=== PATIENT | male | born 1940 | race Caucasian/White ===

== ENCOUNTER 2018-04-27 07:41 | Outpatient (CLI) | payer MEDICARE ==
[2018-04-27 08:34] LABS: Estimated GFR-MDRD - POC Greater than 90
[2018-04-27] MEDS ORDERED: ISOVUE-370 76%-LOCM 1 ML ONE (13:56)
== END 2018-04-27 07:42 | disposition home or self-care (01) ==
LOC: BICCT 07:41
PROVIDERS: ATTEND Internal Medicine Hematology & Oncology
DX: C49.4 Malignant neoplasm of connective and soft tissue of abdomen (principal); R91.8 Other nonspecific abnormal finding of lung field; N28.1 Cyst of kidney, acquired; K76.89 Other specified diseases of liver; M89.9 Disorder of bone, unspecified
CPT/HCPCS: 71260; 74177; 82565

== ENCOUNTER 2019-05-02 07:20 | Outpatient (CLI) | payer MEDICARE ==
[2019-05-02 08:02] LABS: Estimated GFR-MDRD - POC Greater than 90
--- NOTE | 2019-05-02 08:37 | CT ---
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 COMPARISON: 04/27/2018 FINDINGS: CT THORAX: Lungs: Stable pulmonary nodules medial aspect right lower lobe are noted again measuring 6 mm and 4 m m respectively. No new pulmonary nodule or mass is seen. There is stable parenchymal scarring again seen in each lung base greater on the right. Pleura: No pleural effusion is seen. There is calcified pleural thickening at the anterior aspect rig ht upper and mid lung zones. This was also present on prior exam. Lymph nodes: No lymphadenopathy. Mediastinum: Vascular calcifications are seen in the thoracic aorta. Chest wall: No abnormalities. Osseous structures: Remote bilateral rib fractures are seen. Degenerative changes are noted in the sp ine. CT ABDOMEN AND PELVIS: Liver: A 1.3 cm fluid attenuation lesion seen in the posterior aspect left hepatic lobe likely relate d to a small cyst. This is overall stable in size compared to prior exam. Gallbladder: Increased density within lumen of the gallbladder likely related to gallbladder calculi and possibly sludge. This was also present on prior exam.\ Pancreas: Within normal limits. Spleen: Within normal limits. Adrenal glands: Within normal limits. Kidneys: Stable subcentimeter hypodense lesions are again seen in the left kidney statistically likel y representing cysts. The right kidney has a normal CT appearance. Urinary Bladder: The urinary bladder is unremarkable. Reproductive organs: Prostate gland is mildly enlarged measuring 5.5 cm in transverse dimensions with mild heterogeneity. Bowel: There is colonic diverticulosis. Loops of small bowel are normal in caliber. Adenopathy:No lymphadenopathy within the abdomen or pelvis. Peritoneum: No free fluid or fluid collection is seen. No free intraperitoneal gas is identified. Abdominal wall: Mild midline scarring is present. Osseous structures: Degenerative and postsurgical changes lumbar spine are noted. There is a stable s clerotic lesion within the posterior aspect of the left iliac bone at the level of the sacroiliac joint. This is unchanged compared to the prior exam, and this was also seen on a study in 2013. This also stable area of sclerosis seen within the upper sacrum centrally stable from prior studies.. IMPRESSION: 1. Stable CT scan of the chest, abdomen, and pelvis. 2. Stable right lower lobe pulmonary nodules. 3. Stable hepatic and renal cysts 4. Stable appearance of sclerotic osseous lesions within the pelvis. 5. Cholelithiasis. 6. Colonic diverticulosis.
[2019-05-02] MEDS ORDERED: ISOVUE-370 76%-LOCM 1 ML ONE (10:46)
== END 2019-05-02 07:21 | disposition home or self-care (01) ==
LOC: BICCT 07:20
PROVIDERS: ATTEND Internal Medicine Hematology & Oncology
DX: C49.4 Malignant neoplasm of connective and soft tissue of abdomen (principal); R91.8 Other nonspecific abnormal finding of lung field; K80.20 Calculus of gallbladder without cholecystitis without obstruction; K57.30 Diverticulosis of large intestine without perforation or abscess without bleeding; N28.1 Cyst of kidney, acquired; K76.89 Other specified diseases of liver
CPT/HCPCS: 71260; 74177; 82565; Q9966

== ENCOUNTER 2019-09-05 09:11 | Emergency (ER) | payer MEDICARE ==
[2019-09-05 09:48] LABS: #Basophils 0.1 thou/uL (0.0-0.2); #Lymphocytes 0.4 thou/uL (1.20-3.40); #Monocytes 0.5 thou/uL (0.11-0.59); #Neutrophils 7.3 thou/uL (1.40-6.50); %Basophils 1.4 % (0.0-1.0); %Eosinophils 0.1 % (0.0-10.0); %Monocytes 6.3 % (0.0-10.0); %Neutrophils 87.1 % (42.0-75.0); Hemoglobin 13.3 g/dL (14.0-18.0); Mean Corpuscular HGB CONC 34.2 g/dL (32.0-36.0); Mean Corpuscular Hemoglobin 33.2 pg (27.0-31.0); Mean Corpuscular Volume 97.1 fL (78.0-98.0); Mean Platelet Volume 6.4 fL (7.4-10.4); Platelet Count 279 thou/uL (130-400); RBC Distribution Width 11.7 % (11.5-14.5); White Blood Cell (WBC) Count 8.4 thou/uL (4.8-10.8)
[2019-09-05] MEDS ORDERED: Ondansetron PF 4 MG/2 ML Vial ONE (10:01)
[2019-09-05] MEDS ORDERED: Morphine 4 MG/ML VIAL ONE (10:01)
[2019-09-05 10:08] LABS: ALT (SGPT) 26 U/L (8-55); AST (SGOT) 28 U/L (5-34); Albumin 4.2 g/dL (3.4-4.8); Alkaline Phosphatase 57 U/L (40-110); Anion Gap 14 mmol/L (10-20); BUN (Urea Nitrogen) 12 mg/dL (8.4-25.7); Bilirubin, Total 0.6 mg/dL (0.2-1.2); Calc. Creatinine Clearance 0 mL/min (70-130); Calcium 8.7 mg/dL (7.8-10.44); Carbon Dioxide 19 mmol/L (23-31); Chloride 108 mmol/L (98-107); Estimated GFR-MDRD 78; Glucose 146 mg/dL (83-110); Lipase 25 U/L (8-78); Potassium 3.4 mmol/L (3.5-5.1); Protein, Total 6.2 g/dL (5.8-8.1); Sodium 138 mmol/L (136-145)
[2019-09-05 10:29] LABS: Bacteria/HPF None Seen HPF (None Seen); Bilirubin Negative (Negative); Blood, Urine 3+ (Negative); Clarity Turbid (Clear); Glucose, Urine (Dipstick) Normal (Negative); Leukocyte Negative Leu/uL (Negative); Mucous/LPF 1+ LPF (<2+); Nitrite Negative (Negative); Protein, Urine (Dipstick) 70 mg/dL (Neg-Trace); RBC/HPF Greater than 50 HPF (0-3); Squamous Epithelial 0-3 HPF (0-3); Urobilinogen Normal mg/dL (Less than 2)
--- NOTE | 2019-09-05 11:26 | CT ---
CT OF THE ABDOMEN AND PELVIS WITH IV CONTRAST INDICATION: History of left lower quadrant abdominal pain COMPARISON: CT the chest, abdomen and pelvis dated May 02, 2019 and March 25, 2014 FINDINGS: ABDOMEN: Lung bases: The pleural-based nodule overlying the right heart border is slightly smaller than on the most recent CT evaluation now measuring 9.6 mm where previously measured 11 mm. The right middle lobe pulmonary nodule now measures 1.7 cm were previously measured 1.8 cm. Mild scarring within both lower lobes is stable appearing. Liver: There is fatty infiltration of liver. The left hepatic lobe cyst is stable measuring 1.1 cm. N o new hepatic lesion is evident. Gallbladder: There is layered density within the gallbladder which may reflect small stones or sludg e. Pancreas: Normal. Adrenal glands: Normal. Spleen: Normal. Kidneys and ureters: There are stable bilateral renal cysts. No hydronephrosis is demonstrated. There is mild left hydroureter with periureteral inflammatory stranding. Vasculature: There are moderate vascular calcifications seen involving the visualized vasculature. Lymph nodes:Small pericardial lymph nodes are slightly smaller to stable measuring 6.6 mm and 1 cm we re previously these measured 6.6 and 1.4 cm in size Free fluid in abdomen:No free fluid is evident. PELVIS: Small and large bowel: There is scattered colonic diverticulosis. No recurrent soft tissue mass is se en within the mesentery. Small bowel is of normal caliber. Appendix:Normal Bladder: There is a 2.7 mm stone just distal to the left UVJ within the posterior lateral aspect of t he bladder. Rectal and perirectal soft tissues:Normal. Reproductive structures: The prostate is enlarged measuring 6.4 cm. Free fluid in pelvis: No free fluid is evident. Lymphadenopathy pelvis: No lymphadenopathy is evident. Osseous structures: No acute osseous abnormality. No destructive osteolytic or osteoblastic lesion i s identified. There is scattered degenerative and osteoarthritic changes. There is diffuse osteopenia. Soft tissues:There is stable fat-containing left inguinal hernia. IMPRESSION: 1. Findings consistent with a recently passed left renal collecting system stone. There is a 2.7 mm s tone within the posterior lateral aspect of the bladder. 2. Right sided pulmonary nodules have decreased in prominence from the prior exam. Continued CT follo w-up is recommended. 3. No evidence to suggest recurrent intra-abdominal mass. The right pericardial lymph nodes are stabl e to slightly smaller size. Continued CT surveillance is recommended. 4. Stable linear density within the liver suspicious for layered sludge versus stones. 5. Stable hepatic and bilateral renal cysts.
[2019-09-05] MEDS ORDERED: Iopamidol-370 76% 500 ML 1 ML ONE (14:59)
== END 2019-09-05 11:52 | disposition home or self-care (01) ==
LOC: ERS 09:11
DX: N13.2 Hydronephrosis with renal and ureteral calculous obstruction (principal); E78.2 Mixed hyperlipidemia; Z79.899 Other long term (current) drug therapy
CPT/HCPCS: 74177; 80053; 81003; 81015; 83690; 85025; 96361; 96374; 96375; J2270; J2405; Q9967

== ENCOUNTER 2020-04-24 08:15 | Outpatient (CLI) | payer MEDICARE ==
--- NOTE | 2020-04-24 12:05 | CT ---
CT CHEST AND ABDOMEN AND PELVIS WITH IV CONTRAST: INDICATION: Malignant neoplasm of connective and soft tissue of abdomen. History of gastrointestinal stromal josephine or. On chemotherapy. COMPARISON: Comparison is made to CT chest, abdomen, and pelvis 05/02/2019. FINDINGS: CT CHEST: Lung rucker show chronic parenchymal changes which appear stable. There are 2 soft tissue nodules in the posterior right lower lobe along the pleural surface with the largest measuring 5-6 mm. These a re stable. There is parenchymal stranding and some hazy parenchymal changes in the lung bases which appear stabl e. No effusion or infiltrate. The mediastinum is unremarkable with no evidence of adenopathy. The bony thorax appears unremarkable. Some pleural calcific densities seen anterior right lung media lly along the anterior abdominal wall and extending along the medial pleural surface of the anterior mediastinum. This is a stable finding. IMPRESSION: Stable chest findings. The small nodules in the right lung base are stable. Chronic parenchymal and pleural changes appear stable. CT ABDOMEN AND PELVIS: Small left hepatic lobe cyst is unchanged. The liver and spleen and pancreas are otherwise unremarka ble. Numerous gallstones are again seen in the gallbladder. No pericholecystic edema. Stomach and duodenum unremarkable. Adrenal glands normal. Kidneys unremarkable. Low-density lesions in the left kidney described previously are not quite as p ronounced today but appear stable. The small and large bowel appear unremarkable. There is scattered diverticula in the left colon. Ao rta normal caliber. No adenopathy, mass, or free fluid. Prominent internal inguinal rings again not ed. The urinary bladder is contracted. Mild prostatic hypertrophy. The osseous structures are unre markable. Nonspecific sclerosis in the posterior left ileum which was described previously is unchan ged and appears benign. Degenerative spine changes again noted. IMPRESSION: 1. Cholelithiasis again noted. 2. Small hepatic cyst is stable. 3. Left renal cystic lesions are stable. 4. No evidence of acute interval change. POS: [facility]
[2020-04-24] MEDS ORDERED: Iopamidol-370 76% 500 ML 1 ML ONE (13:12)
== END 2020-04-24 08:16 | disposition home or self-care (01) ==
LOC: BICCT 08:15
PROVIDERS: ATTEND Internal Medicine Hematology & Oncology
DX: C49.4 Malignant neoplasm of connective and soft tissue of abdomen (principal); R91.8 Other nonspecific abnormal finding of lung field; J94.8 Other specified pleural conditions; K80.20 Calculus of gallbladder without cholecystitis without obstruction; K76.89 Other specified diseases of liver; N28.1 Cyst of kidney, acquired
CPT/HCPCS: 71260; 74177; Q9967

== ENCOUNTER 2021-02-20 09:40 | Outpatient (CLI) | payer MEDICARE | END 2021-02-20 09:41 | disposition home or self-care (01) | LOC: SCSRAD 09:40 | PROVIDERS: ATTEND Family Medicine | DX: M25.561 Pain in right knee (principal); M25.562 Pain in left knee ==

== ENCOUNTER 2021-05-07 10:32 | Outpatient (CLI) | payer MEDICARE ==
[~2021-05-07 10:32] MED LIST: Iopamidol 370 76% 100 ML VIAL ONE
== END 2021-05-07 10:33 | disposition home or self-care (01) ==
LOC: BICCT 10:32
PROVIDERS: ATTEND Internal Medicine Hematology & Oncology
DX: C49.4 Malignant neoplasm of connective and soft tissue of abdomen (principal)
CPT/HCPCS: 71260; 74177; Q9967

== ENCOUNTER 2022-04-17 09:53 | Outpatient (CLI) | payer MEDICARE | END 2022-04-17 09:54 | disposition home or self-care (01) | LOC: MRI 09:53 | PROVIDERS: ATTEND Family Medicine | DX: M48.061 Spinal stenosis, lumbar region without neurogenic claudication (principal); M53.3 Sacrococcygeal disorders, not elsewhere classified; M89.9 Disorder of bone, unspecified; Z98.890 Other specified postprocedural states | CPT/HCPCS: 72158 ==

== ENCOUNTER 2023-05-05 08:45 | Outpatient (CLI) | payer MEDICARE ==
[2023-05-05] MEDS ORDERED: Iopamidol-370 76% 500 ML MDV (1 ML CHARGE) ONE (10:30)
== END 2023-05-05 08:46 | disposition home or self-care (01) ==
LOC: BICCT 08:45
PROVIDERS: ATTEND Internal Medicine Hematology & Oncology
DX: C49.4 Malignant neoplasm of connective and soft tissue of abdomen (principal); J98.4 Other disorders of lung; I70.0 Atherosclerosis of aorta; K80.20 Calculus of gallbladder without cholecystitis without obstruction; N28.9 Disorder of kidney and ureter, unspecified; K57.30 Diverticulosis of large intestine without perforation or abscess without bleeding; M16.0 Bilateral primary osteoarthritis of hip; M53.3 Sacrococcygeal disorders, not elsewhere classified; J94.8 Other specified pleural conditions; I25.10 Atherosclerotic heart disease of native coronary artery without angina pectoris; M19.011 Primary osteoarthritis, right shoulder; M19.012 Primary osteoarthritis, left shoulder; K76.89 Other specified diseases of liver; N40.0 Benign prostatic hyperplasia without lower urinary tract symptoms; K40.90 Unilateral inguinal hernia, without obstruction or gangrene, not specified as recurrent; M47.819 Spondylosis without myelopathy or radiculopathy, site unspecified; R91.8 Other nonspecific abnormal finding of lung field; Z98.890 Other specified postprocedural states
CPT/HCPCS: 71260; 74177; 82565; Q9967

== ENCOUNTER 2024-05-20 12:37 | Outpatient (CLI) | payer MEDICARE | END 2024-05-20 12:38 | disposition home or self-care (01) | LOC: BICCT 12:37 | PROVIDERS: ATTEND Internal Medicine Hematology & Oncology | DX: N28.9 Disorder of kidney and ureter, unspecified (principal); C49.4 Malignant neoplasm of connective and soft tissue of abdomen | CPT/HCPCS: 36415; 74170; 82565 ==

== ENCOUNTER 2025-07-04 07:27 | Outpatient (CLI) | payer MEDICARE ==
[2025-07-04 08:05] LABS: Estimated GFR - POC 55.0
[2025-07-04] MEDS ORDERED: Iopamidol 370 76% 100 ML VIAL ONE (11:42)
== END 2025-07-04 07:28 | disposition home or self-care (01) ==
LOC: CT 07:27
PROVIDERS: ATTEND Internal Medicine Hematology & Oncology
DX: C49.4 Malignant neoplasm of connective and soft tissue of abdomen (principal); K80.20 Calculus of gallbladder without cholecystitis without obstruction; K76.89 Other specified diseases of liver; N28.1 Cyst of kidney, acquired; N40.0 Benign prostatic hyperplasia without lower urinary tract symptoms; M47.819 Spondylosis without myelopathy or radiculopathy, site unspecified; N32.89 Other specified disorders of bladder
CPT/HCPCS: 36415; 74178; 82565; Q9967